=== PATIENT | female | born 1945 | race Caucasian/White ===

== ENCOUNTER 2016-12-25 04:18 | Emergency (ER) | payer BC, MEDICARE ==
[2016-12-25 04:34] VITALS: O2SAT 100
--- NOTE | 2016-12-25 05:11 | ERPHSYRPT ---
- History of Present Illness Time Seen by Provider: 12/25/16 04:45 Source: patient, family Exam Limitations: no limitations Patient Subjective Stated Complaint: pt states she was getting up from the couch and lost her balance and fell and hit her head and tailbone. Triage Nursing Assessment: pt alert and oriented, asnwers questions approp. pt ambulatory from bathroom to exam 4 with steady gait noted. skin pink warm and dry, respiration nonlabored with lungs cta. o2 on at 2l per nc, pt wears at home at night. 2+ edema to bilat lower ext, pt states is her norm. hematoma noted to lt posterior head. no open areas, tender to touch. Occurred: just prior to arrival Reason for Fall: lost balance Injuries/Pain Location: head Loss of Consciousness: no loss of consciousness Quality: sharpness Severity of Pain-Max: mild Severity of Pain-Current: mild Associated Symptoms (Fall): denies symptoms, No lightheadedness, No seizures, No slurred speech, No vomiting Allergies/Adverse Reactions: furosemide [From Lasix] Allergy (Severe, Verified 12/25/16 04:35) Difficulty Breathing clindamycin Allergy (Mild, Verified 12/25/16 04:35) iodine Allergy (Mild, Verified 12/25/16 04:35) Hives Penicillins Allergy (Mild, Verified 12/25/16 04:35) Hives PT STATES "I AM ALLERGIC TO SEVERAL ATB'S. I CAN ONLY TAKE SULFA AND BACTRIM red (food color) Allergy (Mild, Verified 12/25/16 04:35) Hives red dye Allergy (Mild, Verified 12/25/16 04:35) Hives aspirin Adverse Reaction (Verified 12/25/16 04:35) epigastric pain/bleeding IV DYE Allergy (Mild, Uncoded 12/25/16 04:35) Hives Home Medications: Lorazepam 0.5 mg [Ativan 0.5 MG] 1 mg PO TIDPRN 08/18/13 [History] Prasugrel HCl [Effient] 10 mg PO DAILY 08/18/13 [History] Bumetanide 1 mg [Bumex 1 mg] 0.5 mg PO DAILY PRN PRN 02/02/14 [History] Digoxin 0.125 mg Tablet [Lanoxin 0.125MG TABLET] 0.125 mg PO DAILY [History] Lisinopril 5 mg [Zestril 5 MG] 2.5 mg PO DAILY 02/02/14 [History] Nitroglycerin 0.4 mg Tablet [Nitrostat 0.4 MG Tablet] 0.4 mg SL Q5MIN PRN MR X 3 PRN 08/31/14 [History] Carvedilol 3.125 mg [Coreg 3.125 MG] 3.125 mg PO DAILY 12/25/16 [History] PANTOPRAZOLE 40 mg Tablet [Protonix 40MG Tablet] 40 mg PO QAM 12/25/16 [ History] Spironolactone 25 mg [Aldactone 25 MG] 25 mg PO DAILY 12/25/16 [History] Hx Tetanus, Diphtheria Vaccination/Date Given: Yes Hx Influenza Vaccination/Date Given: No Hx Pneumococcal Vaccination/Date Given: No Immunizations Up to Date: Yes - Review of Systems Constitutional: No Symptoms Eyes: No Symptoms Ears, Nose, & Throat: No Symptoms Respiratory: No Symptoms Cardiac: No Symptoms Abdominal/Gastrointestinal: No Symptoms Musculoskeletal: Fall Skin: No Symptoms, Other (scalp hematoma) Psychological: No Symptoms Endocrine: No Symptoms Hematologic/Lymphatic: No Symptoms Immunological/Allergic: No Symptoms - Past Medical History Pertinent Past Medical History: Yes Neurological History: No Pertinent History ENT History: No Pertinent History Cardiac History: Congestive Heart Failure, Coronary Artery Disease, Myocardial Infarction ([place]), Other Respiratory History: CHF, Pneumonia, Pulmonary Embolism Endocrine Medical History: No Pertinent History Musculoskeletal History: No Pertinent History GI Medical History: GERD History: No Pertinent History Psycho-Social History: Anxiety Female Reproductive Disorders: No Pertinent History Other Medical History: anemia - Past Surgical History Past Surgical History: Yes Neuro Surgical History: No Pertinent History Cardiac: Cardiac Catheterization, Cardiac Stent, Internal Defibrillator, Pacemaker Respiratory: No Pertinent History Gastrointestinal: Other Genitourinary: No Pertinent History Musculoskeletal: No Pertinent History Female Surgical History: Hysterectomy Other Surgical History: urethral polyps. pt states "prolapse in colon with clot " unsure of procedure or name of procedure. - Social History Smoking Status: Former smoker Exposure to second hand smoke: No Drug Use: none Patient Lives Alone: No - Female History Hx Now: No - Nursing Vital Signs Nursing Vital Signs: Initial Vital Signs Temperature 96.7 F 12/25/16 04:24 Pulse Rate 72 12/25/16 04:24 Respiratory Rate 18 12/25/16 04:24 Blood Pressure 115/68 12/25/16 04:24 O2 Sat by Pulse Oximetry 100 12/25/16 04:24 Pain Scale Pain Intensity 6 - Eze Coma Score Best Eye Response ([place]): (4) open spontaneously Best Verbal Response ([place]): (5) oriented Best Motor Response ([place]): (6) obeys commands [place] Total: 15 - Physical Exam General Appearance: moderate distress Head Injury: contusions, ecchymosis (3 cm diameter hematoma posterior occiput), swelling, tenderness, No active bleeding Eye Exam: PERRL/EOMI, eyes nml inspection ENT Exam: airway nml Neck Exam: supple, trachea midline, normal alignment, pain on movement of neck, No stiff neck, No tender lateral Respiratory/Chest Exam: normal breath sounds, No chest tenderness, No ecchymosis , No crepitus Cardiovascular Exam: normal heart sounds, regular rate/rhythm, normal peripheral pulses Gastrointestinal Exam: soft, normal bowel sounds, No tenderness, No distention, No ecchymosis Back Exam: normal inspection Peripheral Pulses: dorsalis-pedis (R): 3+, dorsalis-pedis (L): 3+ Neurologic Exam: alert, oriented x 3, cooperative, electrolytic etcher II-XII nml as tested, normal mood/affect, No motor deficits, No sensory deficit, No disoriented, No confusion, No agitation, No depressed mood/affect, No motor weakness, No facial droop, No slurred speech Skin Exam: normal color, warm, dry SpO2 Interpretation: normal SpO2: 100 Oxygen Delivery: Room Air - Course Nursing assessment & vital signs reviewed: Yes - Radiology Exams L-Spine X-ray Interpretation: Interpreted by me, Reviewed by me, No Fracture ( Dextroscoliosis unchanged since 10.14.2016. DDD, but no acute Fx.) - CT Exams Cervical Spine CT Interpretation: Tele-radiologist Report (Age-indeterminate mild height loss of C6 and [id number] bodies. Most likely chronic.) Head CT Interpretation: Tele-radiologist Report, Other (No acute intracranial abn. Left parietal subgaleal hematoma and swelling.) Ordered Tests: Active Orders 24 hr Category Date Time Status CERVICAL SPINE WO CONTRAST [CT] Stat Exams 12/25/16 05:03 Ordered HEAD WITHOUT CONTRAST [CT] Stat Exams 12/25/16 05:03 Ordered LSPINE COMPLETE W/FLEX AND EXT Stat Exams 12/25/16 Ordered - Progress Progress: unchanged Will see patient in: office (PCP 1 week) Counseled pt/family regarding: diagnosis, need for follow-up, rad results - Departure Time of Disposition: 06:55 Departure Disposition: Home Clinical Impression: Coccydynia Head injury due to trauma Qualifiers: Encounter type: initial encounter Qualified Code(s): S09.90XA - Unspecified injury of head, initial encounter Scalp hematoma Qualifiers: Encounter type: initial encounter Qualified Code(s): S00.03XA - Contusion of scalp, initial encounter Condition: Stable Critical Care Time: No Referrals: MACK FLYNN [Primary Care Provider] - Instructions: Contusion, Prevent Falls
[2016-12-25] MEDS ORDERED: TYLENOL 325 MG PO STA (07:01)
[2016-12-25] MEDS ORDERED: TYLENOL 325 MG ONE (07:04)
[2016-12-25 07:49] VITALS: BP 112/68; PULSE 71
--- NOTE | 2016-12-25 09:18 | XRAY ---
Indication: Left posterior swelling following fall. Multiple contiguous axial images obtained through the head without contrast. Comparison: March 28, 2012. Again age-appropriate global atrophy and moderate periventricular degenerative micro-ischemia bilaterally. No acute intracranial hemorrhage, abnormal extra-axial fluid collection, or mass effect. Fourth ventricle is midline without hydrocephalus. Bony calvarium intact. New small left posterior scalp hematoma. There is now near complete opacification of the right sphenoid sinus and moderate right maxillary sinus fluid leveling. Mastoid air cells are clear. Impression: 1. Left posterior scalp hematoma. No underlying fracture or acute intracranial abnormalities. 2. New paranasal sinus disease. 3. Normal aging brain. Comment: Preliminary interpretation was made by [facility] [place]. No discrepancy. CTDI 46.70
--- NOTE | 2016-12-25 09:21 | XRAY ---
Indication: Pain following fall. Comparison: Ch[place], 2017. 5 views of the lumbar spine unchanged again demonstrating mild osteopenia, moderate dextrorotoscoliosis centered at L3 level, mild multilevel degenerative spondylosis, calcified splenic granulomas, and aortic calcifications. No acute fracture, subluxation, or pars interarticularis defect. Lateral views obtained in flexion and extension negative for accentuated motion or instability. Impression: Stable nonacute lumbar spine with chronic features. Negative flexion/extension views.
--- NOTE | 2016-12-25 09:25 | XRAY ---
Indication: Pain following fall. Multiple contiguous axial images obtained through the cervical spine. Sagittal and coronal reformatted images obtained. Comparison: None Axial images negative for acute fracture, suspicious bony lesions, or spinal canal stenosis. Minimal C5-C7 degenerative endplate spurring. Sagittal and coronal reformatted images demonstrates normal alignment. Disc spaces maintained. Very minimal C6/C7 vertebral height loss probably chronic. No acute compression fracture, subluxation, or jumped facet. Normal-appearing craniocervical junction. Visualized noncontrasted soft tissues demonstrates scattered bilateral carotid calcifications. Base of the brain and lung apices are unremarkable. Impression: Nonacute cervical spine with chronic features as detailed. Comment: Preliminary interpretation was made by [facility]. No discrepancy. CTDI 62.62
== END 2016-12-25 07:48 | disposition home or self-care (01) ==
LOC: ED 04:18
DX: S00.03XA Contusion of scalp, initial encounter (principal); M53.3 Sacrococcygeal disorders, not elsewhere classified; S30.0XXA Contusion of lower back and pelvis, initial encounter; W08.XXXA Fall from other furniture, initial encounter
CPT/HCPCS: 70450; 72114; 72125; 99284; A9270-GY